=== PATIENT | female | born 1960 | race Caucasian/White ===

== ENCOUNTER → 2016-05-05 | Outpatient (REF) | payer OTHER ==
[2016-05-05 14:37] LABS: ESTRADIOL < 19.0 PG/ML
[2016-05-05 14:38] LABS: FOLLICLE STIMULATING HORMONE 133.4 mIU/mL
[2016-05-05 14:46] LABS: FREE T4 0.91 NG/DL (0.76-1.46)
== END ==
LOC: M LAB REF 13:16
PROVIDERS: ATTEND Advanced Practice Midwife
DX: N95.1 Menopausal and female climacteric states (principal)

== ENCOUNTER → 2016-10-23 | Outpatient (CLI) | payer OTHER ==
[~2016-10-23] VITALS: Ht 167.6 cm; Wt 60.8 kg
[~2016-10-23] MED LIST: FLUTISP; LIDOCAINE 2% INJ 100 MG/5 ML SDV (FOR ANES.) As Ordered ONE; LINZ290C PO; LUBR0.5D OU; OMEG100011 PO; PROPOFOL 200 MG/20 ML VIAL As Ordered ONE; REFR1GEL OU; STOO100C PO
--- NOTE | 2016-10-23 11:56 | ROOR ---
Patient Name: Marii Lloyd Procedure Date: 10/23/2016 11:42 AM Date of : 1960 Age: 55 Room: [facility] Gender: Female Note Status: Finalized Procedure: Upper GI endoscopy Indications: Epigastric abdominal pain, Functional Dyspepsia Providers: Timmy QIU MD Referring MD: KURT MAR MD Requesting Provider: Medicines: Monitored Anesthesia Care Complications: No immediate complications. Procedure: Pre-Anesthesia Assessment: - The heart rate, respiratory rate, oxygen saturations, blood pressure, adequacy of pulmonary ventilation, and response to care were monitored throughout the procedure. The Endoscope was introduced through the mouth, and advanced to the third part of duodenum. The upper GI endoscopy was accomplished without difficulty. The patient tolerated the procedure well. Findings: The examined esophagus was normal. Two 5 mm sessile fundic gland polyps with no stigmata of recent bleeding were found in the gastric fundus and in the gastric body. The polyp was removed with a cold snare. Resection and retrieval were complete. The entire examined stomach was normal. The examined duodenum was normal. Impression: - Normal esophagus. - Two fundic gland polyps. Resected and retrieved. - Normal stomach. - Normal examined duodenum. Recommendation: - Await pathology results. - Telephone endoscopist for pathology results in 2 weeks. - Continue present medications. Timmy Qiu MD Timmy QIU MD 10/23/2016 11:55:48 AM This report has been signed electronically. Number of Addenda: 0 Note Initiated On: 10/23/2016 11:42 AM Estimated Blood Loss: Estimated blood loss: none.
--- NOTE | 2016-10-23 12:14 | ROOR ---
Patient Name: Marii Lloyd Procedure Date: 10/23/2016 11:42 AM Date of : 1960 Age: 55 Room: [id number] Gender: Female Note Status: Finalized Procedure: Colonoscopy Indications: Screening for colorectal malignant neoplasm, FHx Breast, ovarian and gastric cancer. first degree, ages 50-55. Providers: Timmy QIU MD Referring MD: KURT MAR MD Requesting Provider: Medicines: Monitored Anesthesia Care Complications: No immediate complications. Procedure: Pre-Anesthesia Assessment: - The heart rate, respiratory rate, oxygen saturations, blood pressure, adequacy of pulmonary ventilation, and response to care were monitored throughout the procedure. The Colonoscope was introduced through the anus and advanced to the cecum, identified by appendiceal orifice and ileocecal valve. The colonoscopy was performed without difficulty. The patient tolerated the procedure well. The quality of the bowel preparation was good. Findings: The perianal and digital rectal examinations were normal. The colon (entire examined portion) was redundant. The entire examined colon appeared normal on direct and retroflexion views. The terminal ileum appeared normal. Impression: - Small internal hemorrhoids. - The entire colon is normal on direct and retroflexion views. - The examined portion of the ileum was normal. - No specimens collected. Recommendation: - Repeat colonoscopy in 5 years for screening purposes. (With your family history of early [employer]INER malignancies, would recommend elevated risk screening at every 5 years.) Timmy Qiu MD Timmy QIU MD 10/23/2016 12:13:46 PM This report has been signed electronically. Number of Addenda: 0 Note Initiated On: 10/23/2016 11:42 AM Estimated Blood Loss: Estimated blood loss: none.
[2016-10-23 12:39] VITALS: BP 103/72
== END | disposition home or self-care (01) ==
LOC: M OPP 11:08
PROVIDERS: ATTEND Internal Medicine Gastroenterology
DX: Z12.11 Encounter for screening for malignant neoplasm of colon (principal); K64.8 Other hemorrhoids; Q43.8 Other specified congenital malformations of intestine; Z80.3 Family history of malignant neoplasm of breast; Z80.41 Family history of malignant neoplasm of ovary; Z80.0 Family history of malignant neoplasm of digestive organs; K30 Functional dyspepsia; K31.7 Polyp of stomach and duodenum; M54.9 Dorsalgia, unspecified; Z87.891 Personal history of nicotine dependence; Z79.899 Other long term (current) drug therapy
CPT/HCPCS: 43251; 88305; G0105

== ENCOUNTER → 2017-12-16 | Outpatient (REF) | payer OTHER | LOC: M LAB REF 14:38 | DX: E04.1 Nontoxic single thyroid nodule (principal) ==

== ENCOUNTER → 2020-08-30 | Outpatient (CLI) | payer OTHER ==
[~2020-08-30] MED LIST changes: -LIDOCAINE 2% INJ 100 MG/5 ML SDV (FOR ANES.) As Ordered ONE; +MM S100C PO; -PROPOFOL 200 MG/20 ML VIAL As Ordered ONE; -STOO100C PO
--- NOTE | 2020-08-30 11:59 | REP ---
INDICATION: Z12.31 SCREENING MAMMO. COMPARISON: Multiple TECHNIQUE: Digital screening mammography was obtained bilaterally in the CC and MLO projections along with 2D and 3D modalities and compared to the prior exams. By history, the patient has no complaints of a palpable breast abnormality or other significant breast complaints. FINDINGS: The breasts are unchanged in size and shape. Once again, dense heterogenous somewhat nodular fibroglandular elements are seen bilaterally to such a degree that the sensitivity of the mammogram in detecting cancer is decreased. In the right breast slightly lower slightly inner aspect there is a potential area of afshan asymmetry. There may be concomitant subtle internal architectural distortion. Stable benign calcifications are again seen bilaterally. There is no Skin thickening or nipple retraction. There are no other suspicious features seen in either breast. Luis Hull IMPRESSION: BIRADS/ACR category 0 mammogram. Diagnostic digital magnified spot compression views of the right breast recommended slightly lower slightly inner aspect. Ultrasonography might also be indicated. This patient's Tyrer-Cuzick lifetime breast cancer risk assessment score is 21.4%. This mammogram was interpreted with the aid of an FDA-approved computer-aided detection system. The patient states she had a clinical breast exam in over a year. The patient letter being requested is M0. RECOMMENDATION: As above <Electronically signed by Artie Zimmer > 08/30/20 [id number]
== END ==
LOC: M WHC 10:02
PROVIDERS: ATTEND Physician Assistant Medical
DX: Z12.31 Encounter for screening mammogram for malignant neoplasm of breast (principal); R92.8 Other abnormal and inconclusive findings on diagnostic imaging of breast

== ENCOUNTER → 2020-09-06 | Outpatient (CLI) | payer OTHER ==
--- NOTE | 2020-09-06 15:08 | REP ---
INDICATION: RIGHT BREAST ADDITIONAL VIEWS. COMPARISON: The prior exams were reviewed. The prior screening examination of 08/30/2020 showed a potential afshan asymmetric density. TECHNIQUE: Diagnostic digital magnified spot compression views of the right breast were obtained near the central portion of the right breast in a retroareolar location where the prior screening examination suggested a potential area of asymmetry. FINDINGS: The diagnostic digital magnified spot compression views have showed the area to compress out to normal breast parenchyma. No abnormal calcifications, nodules, or areas of spiculation are identified. IMPRESSION: BIRADS/ACR category 2 negative mammogram. There is no evidence of malignant alteration of the right breast. The patient letter being requested is M1. RECOMMENDATION: Repeat screening mammography recommended 1 year (for women over 40). <Electronically signed by Artie Zimmer > 09/06/20 [id number]
== END ==
LOC: M WHC 13:23
PROVIDERS: ATTEND Physician Assistant Medical
DX: R92.8 Other abnormal and inconclusive findings on diagnostic imaging of breast (principal)

== ENCOUNTER → 2021-12-11 | Outpatient (CLI) | payer OTHER | LOC: M WHC 11:07 | PROVIDERS: ATTEND Physician Assistant Medical | DX: Z12.31 Encounter for screening mammogram for malignant neoplasm of breast (principal) ==

== ENCOUNTER → 2023-01-07 | Outpatient (CLI) | payer OTHER ==
[~2023-01-07] MED LIST changes: +FLUT50SP17; -FLUTISP
== END ==
LOC: M WHC 09:57
PROVIDERS: ATTEND Physician Assistant Medical
DX: Z12.31 Encounter for screening mammogram for malignant neoplasm of breast (principal)

== ENCOUNTER → 2024-07-06 | Outpatient (CLI) | payer OTHER ==
[~2024-07-06] MED LIST changes: +CARB15DR64 OU; -FLUT50SP17; +FLUTISP; -LUBR0.5D OU
== END ==
LOC: M WHC 13:37
PROVIDERS: ATTEND Physician Assistant Medical
DX: Z12.31 Encounter for screening mammogram for malignant neoplasm of breast (principal); R92.333 Mammographic heterogeneous density, bilateral breasts